=== PATIENT | male | born 1995 | race African-American/Black ===

== ENCOUNTER 2020-04-14 13:40 | Inpatient (IN) | payer OTHER ==
[~2020-04-14] VITALS: Ht 170.2 cm; Wt 97.7 kg
[2020-04-14] MEDS ORDERED: SODIUM CHLORIDE 0.9% 500 ML IVB ONE (14:23)
[2020-04-14] MEDS ORDERED: ONDANSETRON HCL 4 MG/2 ML VIAL IV ONE (14:30)
[2020-04-14] MEDS ORDERED: MORPHINE SULFATE 4 MG/ML SYR/VIAL IV ONE (14:30)
[2020-04-14 14:34] LABS: Basophils # (auto) 0 10 ^3/uL (0-0.2); Basophils % (auto) 0.9 % (0.0-2.0); Eosinophils # (auto) 0.3 10 ^3/uL (0-0.8); Eosinophils % (auto) 5.6 % (0.0-7.0); Hematocrit 44.9 % (41.0-53.0); Hemoglobin 15.1 g/dL (13.5-17.5); Lymphocytes # (auto) 1.8 10 ^3/uL (0.4-5.4); Lymphocytes % (auto) 34.4 % (10.0-50.0); Mean Corpuscular Hemoglobin 29.5 pg (28.0-32.0); Mean Corpuscular Hgb Conc. 33.5 g/dL (32.0-36.0); Mean Corpuscular Volume 88.2 fL (80.0-100.0); Monocytes # (auto) 0.6 10 ^3/uL (0-1.3); Monocytes % (auto) 10.3 % (0.0-12.0); Neutrophils # (auto) 2.6 10 ^3/uL (1.6-8.6); Neutrophils % (auto) 48.8 % (37.0-80.0); Nucleated Red Blood Cells % 0.1 %; Platelet Count (auto) 224 10^3/uL (140-450); Red Cell Distribution Width 14.3 % (11.8-14.3); White Blood Cell 5.3 10^3/uL (4.4-10.8)
[2020-04-14 14:43] LABS: Albumin 3.9 g/dL (3.4-5.0); BUN/Creatinine Ratio 8.5; Calcium 8.6 mg/dL (8.5-10.1); Potassium 3.9 mmol/L (3.5-5.1)
[2020-04-14 14:46] LABS: Bilirubin, Total 0.4 mg/dL (0.2-1.0); Total Protein 8.1 g/dL (6.4-8.2)
[2020-04-14 16:38] LABS: Urine Bacteria NONE SEEN /hpf (None Seen); Urine Blood Negative /uL (Negative); Urine Mucus FEW (None Seen); Urine Specific Gravity 1.014 (1.001-1.035); Urine WBC <1 /hpf (0 - 3)
[2020-04-14 16:53] LABS: Alcohol, Urine < 3.0 mg/dL (0-5); Amphetamine Screen, Urine NEGATIVE (NEGATIVE); Barbiturate Scree,Urine NEGATIVE (NEGATIVE); Benzodiazephine Screen, Urine NEGATIVE (NEGATIVE); Cannabinoid Screen, Urine NEGATIVE (NEGATIVE); Cocaine Screen, Urine NEGATIVE (NEGATIVE); Opiate Scree,Urine NEGATIVE (NEGATIVE); Phencyclidine Screen, Urine NEGATIVE (NEGATIVE)
[2020-04-14] MEDS ORDERED: NITROGLYCERIN 0.4 MG SL TAB SL PRN ×2 (17:45→21:15)
[2020-04-14] MEDS ORDERED: MORPHINE SULF INJ 2 MG/ML SYRINGE 1ML IV PRN ×3 (17:45→21:15)
[2020-04-14] MEDS ORDERED: MONT4CHW9 PO (20:52)
[2020-04-14] MEDS ORDERED: LORA-154 PO (20:52)
[2020-04-14] MEDS ORDERED: ALBU0.084 IN (20:52)
[2020-04-14] MEDS ORDERED: FLUT1SPR5 (20:52)
[2020-04-14] MEDS ORDERED: IPRATROPIUM BROM 0.5 MG/2.5ML INH SOL NEB ONE (21:00)
[2020-04-14] MEDS ORDERED: ALBUTEROL SULF 2.5 MG/0.5ML(0.5%) NEB SOLN NEB ONE (21:00)
[2020-04-14] MEDS ORDERED: SODIUM CHLORIDE 0.9% 1,000 ML IV SCH (21:04)
[2020-04-14] MEDS ORDERED: ALUM & MAG HYDROX-SIMETH LIQ(MAALOX) 30 ML PO PRN (21:15)
[2020-04-14] MEDS ORDERED: LORazepam 0.5 MG TAB PO PRN (21:15)
[2020-04-14] MEDS ORDERED: ONDANSETRON HCL 4 MG/2 ML VIAL IV PRN (21:15)
[2020-04-14] MEDS ORDERED: DOCUSATE SOD 100 MG CAP PO PRN (21:15)
[2020-04-14 21:21] VITALS: BP 119/76
[2020-04-14] MEDS: SODIUM CHLORIDE 0.9% 1,000 ML IV SCH (21:45)
[2020-04-14] MEDS ORDERED: LORazepam 2MG/ML-1ML VIAL IV PRN (21:45)
[2020-04-14] MEDS ORDERED: METOCLOPRAMIDE HCL 10 MG TAB PO PRN (21:45)
[2020-04-14 22:00] VITALS: BP 124/71
[2020-04-14] MEDS: FLUTICASONE PROP NASAL SPR 0.05 % (50MCG) 16GM SCH (22:00)
[2020-04-14] MEDS: IPRATROPIUM BROM 0.5 MG/2.5ML INH SOL NEB PRN (22:24)
[2020-04-14] MEDS: ALBUTEROL SULF 2.5 MG/0.5ML(0.5%) NEB SOLN NEB PRN (22:24)
[2020-04-14] MEDS: MONTELUKAST SODIUM 10 MG TAB PO SCH (23:12)
[2020-04-14] MEDS: LORATADINE 10 MG TAB PO SCH (23:12)
[2020-04-14] MEDS: HYDROcodone-ACET 5/325MG TAB PO PRN (23:13)
[2020-04-15 05:04] VITALS: BP 123/73
[2020-04-15 07:02] LABS: Basophils # (auto) 0 10 ^3/uL (0-0.2); Basophils % (auto) 0.5 % (0.0-2.0); Eosinophils # (auto) 0.3 10 ^3/uL (0-0.8); Eosinophils % (auto) 4.6 % (0.0-7.0); Hematocrit 44.1 % (41.0-53.0); Hemoglobin 14.7 g/dL (13.5-17.5); Lymphocytes # (auto) 2.4 10 ^3/uL (0.4-5.4); Lymphocytes % (auto) 35.5 % (10.0-50.0); Mean Corpuscular Hemoglobin 29.4 pg (28.0-32.0); Mean Corpuscular Hgb Conc. 33.4 g/dL (32.0-36.0); Monocytes # (auto) 0.5 10 ^3/uL (0-1.3); Monocytes % (auto) 8.2 % (0.0-12.0); Neutrophils # (auto) 3.4 10 ^3/uL (1.6-8.6); Neutrophils % (auto) 51.2 % (37.0-80.0); Nucleated Red Blood Cells % 0.1 %; Platelet Count (auto) 226 10^3/uL (140-450); Red Blood Cells 5.01 10^6/uL (4.5-5.90); Red Cell Distribution Width 13.8 % (11.8-14.3); White Blood Cell 6.7 10^3/uL (4.4-10.8)
[2020-04-15 07:15] LABS: INR 1.13 (0.9-1.15); Partial Thromboplastin Time 34.2 sec (23.64-32.05)
[2020-04-15 07:29] LABS: Potassium 4.1 mmol/L (3.5-5.1)
[2020-04-15 07:41] LABS: Albumin 3.6 g/dL (3.4-5.0); BUN/Creatinine Ratio 9.4; Bilirubin, Total 0.9 mg/dL (0.2-1.0); CRP High Sensitivity 0.13 mg/dL (< 0.3); Total Protein 7.4 g/dL (6.4-8.2)
[2020-04-15] MEDS: IPRATROPIUM BROM 0.5 MG/2.5ML INH SOL NEB PRN ×2 (07:42→14:36)
[2020-04-15] MEDS: ALBUTEROL SULF 2.5 MG/0.5ML(0.5%) NEB SOLN NEB PRN ×2 (07:43→14:36)
[2020-04-15] MEDS: SODIUM CHLORIDE 0.9% 1,000 ML IV SCH ×2 (07:45→17:45)
[2020-04-15 09:00] VITALS: BP 135/75
[2020-04-15] MEDS: FLUTICASONE PROP NASAL SPR 0.05 % (50MCG) 16GM SCH ×2 (09:41→22:07)
[2020-04-15] MEDS: predniSONE 20 MG TAB PO SCH (09:42)
[2020-04-15] MEDS: ENOXAPARIN SOD 40 MG/0.4 ML SYRINGE SC SCH (09:42)
[2020-04-15] MEDS: HYDROcodone-ACET 5/325MG TAB PO PRN ×2 (09:43→18:22)
[2020-04-15] MEDS: DexAMETHasone INJECTION 10 MG in D5W 5% 50 ML IV SCH (10:33)
[2020-04-15 13:00] VITALS: BP 120/77
[2020-04-15] MEDS: PANTOPRAZOLE 40 MG TAB PO SCH ×2 (14:27→22:09)
[2020-04-15] MEDS: LIDOCAINE 5% TOPICAL PATCH TOP SCH (14:45)
[2020-04-15 17:00] VITALS: BP 145/66
[2020-04-15] MEDS ORDERED: LORazepam 2MG/ML-1ML VIAL IV PRN (18:00)
[2020-04-15 22:00] VITALS: BP 146/81
[2020-04-15] MEDS: LORATADINE 10 MG TAB PO SCH (22:09)
[2020-04-15] MEDS: MONTELUKAST SODIUM 10 MG TAB PO SCH (22:09)
[2020-04-16] MEDS: SODIUM CHLORIDE 0.9% 1,000 ML IV SCH ×2 (03:45→10:49)
[2020-04-16 05:00] VITALS: BP 122/90
[2020-04-16 09:00] VITALS: BP 123/71
[2020-04-16] MEDS: DexAMETHasone INJECTION 10 MG in D5W 5% 50 ML IV SCH (10:46)
[2020-04-16] MEDS: ENOXAPARIN SOD 40 MG/0.4 ML SYRINGE SC SCH (10:47)
[2020-04-16] MEDS: predniSONE 20 MG TAB PO SCH (10:47)
[2020-04-16] MEDS: PANTOPRAZOLE 40 MG TAB PO SCH ×2 (10:47→21:51)
[2020-04-16] MEDS: FLUTICASONE PROP NASAL SPR 0.05 % (50MCG) 16GM SCH (10:48)
[2020-04-16] MEDS: LIDOCAINE 5% TOPICAL PATCH TOP SCH (10:48)
[2020-04-16] MEDS: HYDROcodone-ACET 5/325MG TAB PO PRN ×2 (10:51→21:52)
[2020-04-16] MEDS ORDERED: GADOTERIDOL 279.3mg/mL 20ml Vial IV ONE (13:13)
[2020-04-16 13:20] VITALS: BP 142/80
[2020-04-16 17:00] VITALS: BP 134/65
[2020-04-16] MEDS ORDERED: KETOROLAC TROMETH 30 MG/ML 1ML VIAL IV ONE (17:15)
[2020-04-16 22:00] VITALS: BP 120/63
[2020-04-17 05:50] VITALS: BP 129/57
[2020-04-17] MEDS: SUCRALFATE 1 GM/10 ML ORAL SUSP PO SCH ×3 (07:01→16:42)
[2020-04-17 09:00] VITALS: BP 123/61
[2020-04-17] MEDS ORDERED: DexAMETHasone SOD PHOS 10MG/1ML VIAL INJ IV ONE (10:00)
[2020-04-17] MEDS: ENOXAPARIN SOD 40 MG/0.4 ML SYRINGE SC SCH (10:06)
[2020-04-17] MEDS: PANTOPRAZOLE 40 MG TAB PO SCH (10:06)
[2020-04-17] MEDS: LIDOCAINE 5% TOPICAL PATCH TOP SCH (10:06)
[2020-04-17 13:00] VITALS: BP 138/90
[2020-04-17 17:00] VITALS: BP 140/75
[2020-04-17] MEDS: HYDROcodone-ACET 5/325MG TAB PO PRN (21:24)
[2020-04-17 22:00] VITALS: BP 132/83
[2020-04-18] MEDS: PANTOPRAZOLE 40 MG TAB PO SCH ×3 (01:46→22:55)
[2020-04-18 05:00] VITALS: BP 111/54
[2020-04-18] MEDS: SUCRALFATE 1 GM/10 ML ORAL SUSP PO SCH ×3 (06:39→17:37)
[2020-04-18 08:19] VITALS: BP 146/78
[2020-04-18] MEDS ORDERED: SODIUM CHLORIDE LOCK 10 ML ONE (08:49)
[2020-04-18] MEDS ORDERED: fentaNYL CITRATE 100 MCG/2 ML VL ONE (08:50)
[2020-04-18] MEDS ORDERED: diphenhdrAMINE HCL 50 MG/1 ML VL ONE (08:50)
[2020-04-18] MEDS ORDERED: LIDOCAINE VISCOUS 2% 15ML UD ONE (08:50)
[2020-04-18] MEDS ORDERED: MIDAZOLAM HCL 5 MG/ML-1ML VIAL ONE (08:50)
[2020-04-18] MEDS: LIDOCAINE 5% TOPICAL PATCH TOP SCH (10:43)
[2020-04-18] MEDS: ENOXAPARIN SOD 40 MG/0.4 ML SYRINGE SC SCH (10:44)
[2020-04-18 12:45] VITALS: BP 139/68
[2020-04-18 16:51] VITALS: BP 133/84
[2020-04-18] MEDS: HYDROcodone-ACET 5/325MG TAB PO PRN (17:40)
[2020-04-18 22:00] VITALS: BP 138/92
[2020-04-19 05:00] VITALS: BP 129/71
[2020-04-19] MEDS: SUCRALFATE 1 GM/10 ML ORAL SUSP PO SCH ×2 (06:36→11:43)
[2020-04-19 08:11] VITALS: BP 136/80
[2020-04-19] MEDS: PANTOPRAZOLE 40 MG TAB PO SCH (09:50)
[2020-04-19] MEDS: ENOXAPARIN SOD 40 MG/0.4 ML SYRINGE SC SCH (09:51)
[2020-04-19] MEDS: LIDOCAINE 5% TOPICAL PATCH TOP SCH (09:52)
[2020-04-19 12:38] VITALS: BP 137/78
[2020-04-19 14:50] VITALS: BP 137/78
== END 2020-04-19 16:15 | disposition home or self-care (01) | DRG 54 ==
LOC: ER 13:40 → TELE 13:41 → TELE-WESTW 19:50
PROVIDERS: ADMIT Hospitalist; ATTEND Internal Medicine
DX: G43.901 Migraine, unspecified, not intractable, with status migrainosus (principal); D86.9 Sarcoidosis, unspecified; M79.18 Myalgia, other site; R22.1 Localized swelling, mass and lump, neck; S16.1XXA Strain of muscle, fascia and tendon at neck level, initial encounter; K42.9 Umbilical hernia without obstruction or gangrene; H91.3 Deaf nonspeaking, not elsewhere classified; K44.9 Diaphragmatic hernia without obstruction or gangrene; K21.9 Gastro-esophageal reflux disease without esophagitis; J30.9 Allergic rhinitis, unspecified; E66.9 Obesity, unspecified; Z88.0 Allergy status to penicillin; Z88.1 Allergy status to other antibiotic agents; Z83.3 Family history of diabetes mellitus; Z84.1 Family history of disorders of kidney and ureter; Z82.49 Family history of ischemic heart disease and other diseases of the circulatory system; Z68.36 Body mass index [BMI] 36.0-36.9, adult
CPT/HCPCS: 36415; 70450; 70490; 70547; 70551; 74176; 80053; 80061; 80307; 81001; 82550; 82728; 83036; 83516; 83735; 84132; 84439; 84443; 85025; 85610; 85652; 85730; 86141; 86225; 86235; 94640; G0378; J1100; J1885; J2250; J2405; J7060

== ENCOUNTER 2021-06-30 15:33 | Inpatient (IN) | payer OTHER ==
[~2021-06-30] VITALS: Ht 170.2 cm; Wt 103.6 kg
[~2021-06-30 15:33] MED LIST: ALBU0.084 IN; FLUT1SPR5; LORA-483 PO; MONT4CHW9 PO
[2021-06-30] MEDS ORDERED: SODIUM CHLORIDE 0.9% 1,000 ML IV ONE (16:00)
[2021-06-30] MEDS ORDERED: PANTOPRAZOLE 40 MG/10 ML VIAL INJ IV ONE (16:00)
[2021-06-30] MEDS ORDERED: IOHEXOL 300 MG/ML 100ML BOTTLE IJ ONE (16:05)
[2021-06-30 16:31] LABS: Basophils # (auto) 0 10 ^3/uL (0-0.2); Basophils % (auto) 0.5 % (0.0-2.0); Eosinophils # (auto) 0.3 10 ^3/uL (0-0.8); Eosinophils % (auto) 4.5 % (0.0-7.0); Hematocrit 43.5 % (41.0-53.0); Hemoglobin 14.8 g/dL (13.5-17.5); Lymphocytes # (auto) 2.6 10 ^3/uL (0.4-5.4); Lymphocytes % (auto) 41.3 % (10.0-50.0); Mean Corpuscular Hemoglobin 29.4 pg (28.0-32.0); Mean Corpuscular Volume 86.4 fL (80.0-100.0); Monocytes # (auto) 0.6 10 ^3/uL (0-1.3); Neutrophils # (auto) 2.8 10 ^3/uL (1.6-8.6); Neutrophils % (auto) 44.7 % (37.0-80.0); Nucleated Red Blood Cells % 0.1 %; Red Blood Cells 5.04 10^6/uL (4.5-5.90); Red Cell Distribution Width 14.2 % (11.8-14.3); White Blood Cell 6.2 10^3/uL (4.4-10.8)
[2021-06-30 16:47] LABS: Albumin 4.3 g/dL (3.4-5.0); BUN/Creatinine Ratio 11.2; Calcium 8.9 mg/dL (8.5-10.1); Potassium 4.5 mmol/L (3.5-5.1)
[2021-06-30 16:50] LABS: Bilirubin, Total 0.5 mg/dL (0.2-1.0); Total Protein 8.2 g/dL (6.4-8.2)
[2021-06-30 17:01] LABS: Urine Bacteria NONE SEEN /hpf (None Seen); Urine Blood Negative /uL (Negative); Urine Mucus FEW (None Seen); Urine Specific Gravity 1.027 (1.001-1.035); Urine WBC 1 /hpf (0 - 3)
[2021-06-30 17:13] LABS: INR 1.03 (0.9-1.15); Partial Thromboplastin Time 37.1 sec (23.0-31.2)
[2021-06-30 17:20] LABS: Alcohol, Urine < 3.0 mg/dL (0-10); Amphetamine Screen, Urine NEGATIVE (NEGATIVE); Barbiturate Scree,Urine NEGATIVE (NEGATIVE); Benzodiazephine Screen, Urine NEGATIVE (NEGATIVE); Cannabinoid Screen, Urine NEGATIVE (NEGATIVE); Cocaine Screen, Urine NEGATIVE (NEGATIVE); Opiate Scree,Urine NEGATIVE (NEGATIVE); Phencyclidine Screen, Urine NEGATIVE (NEGATIVE)
[2021-06-30] MEDS ORDERED: hydrALAZINE HCL 20 MG/ML VL IV PRN (19:30)
[2021-06-30] MEDS ORDERED: ONDANSETRON HCL 4 MG/2 ML VIAL IV PRN (19:30)
[2021-06-30] MEDS ORDERED: ACETAMINOPHEN 500 MG TAB PO PRN (19:30)
[2021-06-30] MEDS ORDERED: MORPHINE SULF INJ 2 MG/ML SYRINGE 1ML IV PRN ×2 (19:30)
[2021-06-30] MEDS ORDERED: NITROGLYCERIN 0.4 MG SL TAB SL PRN (19:30)
[2021-06-30] MEDS ORDERED: LACTULOSE 20Gm/30ML SOLN PO PRN (19:30)
[2021-06-30] MEDS ORDERED: LORazepam 0.5 MG TAB PO PRN (19:30)
[2021-06-30] MEDS ORDERED: ALBUTEROL SULF 2.5 MG/0.5ML(0.5%) NEB SOLN NEB PRN (19:45)
[2021-06-30] MEDS: MONTELUKAST SODIUM 10 MG TAB PO SCH (22:00)
[2021-06-30 23:45] VITALS: BP 116/82
[2021-06-30 23:55] VITALS: BP 125/76
[2021-07-01] MEDS: SODIUM CHLORIDE 0.9% 1,000 ML IV SCH ×2 (00:30→14:54)
[2021-07-01 05:25] VITALS: BP 125/85
[2021-07-01 06:01] LABS: Basophils # (auto) 0 10 ^3/uL (0-0.2); Basophils % (auto) 0.4 % (0.0-2.0); Eosinophils # (auto) 0.3 10 ^3/uL (0-0.8); Eosinophils % (auto) 5.1 % (0.0-7.0); Hematocrit 41.4 % (41.0-53.0); Hemoglobin 14.2 g/dL (13.5-17.5); Lymphocytes # (auto) 2.9 10 ^3/uL (0.4-5.4); Lymphocytes % (auto) 47.6 % (10.0-50.0); Mean Corpuscular Hemoglobin 29.6 pg (28.0-32.0); Mean Corpuscular Hgb Conc. 34.2 g/dL (32.0-36.0); Mean Corpuscular Volume 86.6 fL (80.0-100.0); Monocytes # (auto) 0.5 10 ^3/uL (0-1.3); Monocytes % (auto) 8.9 % (0.0-12.0); Neutrophils # (auto) 2.3 10 ^3/uL (1.6-8.6); Nucleated Red Blood Cells % 0.1 %; Red Blood Cells 4.79 10^6/uL (4.5-5.90); Red Cell Distribution Width 14.4 % (11.8-14.3)
[2021-07-01 06:15] LABS: INR 1.08 (0.9-1.15)
[2021-07-01 06:18] LABS: Potassium 3.4 mmol/L (3.5-5.1)
[2021-07-01 06:26] LABS: Albumin 3.5 g/dL (3.4-5.0); BUN/Creatinine Ratio 10.2; Bilirubin, Total 0.8 mg/dL (0.2-1.0); Calcium 8.4 mg/dL (8.5-10.1); Total Protein 7.4 g/dL (6.4-8.2)
[2021-07-01 09:00] VITALS: BP 138/86
[2021-07-01] MEDS: ENOXAPARIN SOD 40 MG/0.4 ML SYRINGE SC SCH (09:05)
[2021-07-01] MEDS: PANTOPRAZOLE 40 MG TAB PO SCH (09:05)
[2021-07-01 13:00] VITALS: BP 129/68
[2021-07-01] MEDS ORDERED: KETOROLAC TROMETH 30 MG/ML 1ML VIAL IV ONE (15:00)
[2021-07-01] MEDS: SUCRALFATE 1 GM/10 ML ORAL SUSP PO SCH ×2 (16:41→22:23)
[2021-07-01 16:47] VITALS: BP 144/82
[2021-07-01 22:00] VITALS: BP 136/73
[2021-07-01] MEDS: MONTELUKAST SODIUM 10 MG TAB PO SCH (22:23)
[2021-07-02 05:00] VITALS: BP 130/84
[2021-07-02] MEDS: SUCRALFATE 1 GM/10 ML ORAL SUSP PO SCH ×4 (06:08→22:05)
[2021-07-02] MEDS: SODIUM CHLORIDE 0.9% 1,000 ML IV SCH ×2 (08:30→18:30)
[2021-07-02 09:00] VITALS: BP 136/89
[2021-07-02] MEDS: PANTOPRAZOLE 40 MG TAB PO SCH (10:00)
[2021-07-02] MEDS: ENOXAPARIN SOD 40 MG/0.4 ML SYRINGE SC SCH (10:00)
[2021-07-02 13:00] VITALS: BP 140/79
[2021-07-02 22:00] VITALS: BP 120/75
[2021-07-02] MEDS: MONTELUKAST SODIUM 10 MG TAB PO SCH (22:06)
[2021-07-03] MEDS: SODIUM CHLORIDE 0.9% 1,000 ML IV SCH (04:30)
[2021-07-03 05:00] VITALS: BP 106/62
[2021-07-03] MEDS: SUCRALFATE 1 GM/10 ML ORAL SUSP PO SCH ×2 (06:15→11:30)
[2021-07-03] MEDS: ENOXAPARIN SOD 40 MG/0.4 ML SYRINGE SC SCH (08:44)
[2021-07-03 08:56] VITALS: BP 120/80
[2021-07-03] MEDS ORDERED: PANTOPRAZOLE 40 MG TAB PO SCH (10:00)
[2021-07-03 12:04] VITALS: BP 131/87
[2021-07-03 13:00] VITALS: BP 131/87
== END 2021-07-03 16:00 | disposition home or self-care (01) | DRG 384 ==
LOC: ER 15:44 → OVERFLOW 19:27 → CENTRAL 23:20
PROVIDERS: ADMIT Family Medicine; ATTEND Family Medicine
DX: S20.212A Contusion of left front wall of thorax, initial encounter (principal); D86.9 Sarcoidosis, unspecified; Z20.822 Contact with and (suspected) exposure to COVID-19; K59.00 Constipation, unspecified; H91.93 Unspecified hearing loss, bilateral; E66.9 Obesity, unspecified; G47.00 Insomnia, unspecified; K44.9 Diaphragmatic hernia without obstruction or gangrene; X58.XXXA Exposure to other specified factors, initial encounter; J45.909 Unspecified asthma, uncomplicated; Z90.89 Acquired absence of other organs; Z81.8 Family history of other mental and behavioral disorders; Z88.0 Allergy status to penicillin; Z68.35 Body mass index [BMI] 35.0-35.9, adult; Z82.49 Family history of ischemic heart disease and other diseases of the circulatory system; Z83.3 Family history of diabetes mellitus; Z84.1 Family history of disorders of kidney and ureter; Y93.89 Activity, other specified; Y92.89 Other specified places as the place of occurrence of the external cause; Y99.8 Other external cause status; Z79.899 Other long term (current) drug therapy
CPT/HCPCS: 36415; 71046; 71101; 74177; 80053; 80307; 81001; 83690; 84443; 85025; 85610; 85730; 87426; 94640; 96361; 96374; C9113; G0378; J1885

== ENCOUNTER 2021-07-29 14:55 | Emergency (ER) | payer OTHER ==
[~2021-07-29] VITALS: Ht 170.2 cm; Wt 117.9 kg
[2021-07-29 15:05] VITALS: BP 118/78
[2021-07-29] MEDS ORDERED: ONDANSETRON HCL 4 MG/2 ML VIAL IV ONE (16:15)
[2021-07-29] MEDS ORDERED: SODIUM CHLORIDE 0.9% 1,000 ML IV ONE (16:15)
[2021-07-29] MEDS ORDERED: PANTOPRAZOLE 40 MG/10 ML VIAL INJ IV ONE (16:15)
[2021-07-29] MEDS ORDERED: SODIUM CHLORIDE 0.9% 1,000 ML IVB ONE (16:15)
[2021-07-29 16:45] LABS: Basophils # (auto) 0.1 10 ^3/uL (0-0.2); Eosinophils # (auto) 0.2 10 ^3/uL (0-0.8); Eosinophils % (auto) 3.4 % (0.0-7.0); Hemoglobin 15.7 g/dL (13.5-17.5); Lymphocytes # (auto) 1.8 10 ^3/uL (0.4-5.4); Mean Corpuscular Hemoglobin 28.9 pg (28.0-32.0); Mean Corpuscular Hgb Conc. 33.4 g/dL (32.0-36.0); Mean Corpuscular Volume 86.7 fL (80.0-100.0); Monocytes # (auto) 0.6 10 ^3/uL (0-1.3); Monocytes % (auto) 9.2 % (0.0-12.0); Neutrophils # (auto) 3.6 10 ^3/uL (1.6-8.6); Neutrophils % (auto) 57.4 % (37.0-80.0); Nucleated Red Blood Cells % 0.2 %; Red Blood Cells 5.42 10^6/uL (4.5-5.90); Red Cell Distribution Width 14.1 % (11.8-14.3); White Blood Cell 6.3 10^3/uL (4.4-10.8)
[2021-07-29 17:02] LABS: Albumin 4.3 g/dL (3.4-5.0); Anion Gap 4 (5-15); Blood Urea Nitrogen 12 mg/dL (7-18); Calcium 9.5 mg/dL (8.5-10.1); Carbon Dioxide 28 mmol/L (21-32); Chloride 106 mmol/L (98-107); Glucose 85 mg/dL (74-106); Lipase 97 U/L (73-393); Potassium 3.8 mmol/L (3.5-5.1); Sodium 138 mmol/L (136-145)
[2021-07-29 17:16] LABS: Alanine Aminotransferase 40 U/L (16-61); Alkaline Phosphatase 72 U/L (45-117); Aspartate Aminotransferase 17 U/L (15-37); BUN/Creatinine Ratio 11.3; Bilirubin, Total 0.8 mg/dL (0.2-1.0); GFR African American 108 mL/min; GFR Non-African American 89 mL/min; Total Protein 8.4 g/dL (6.4-8.2)
== END 2021-07-29 21:01 | disposition home or self-care (01) ==
LOC: ER 14:55
DX: K92.0 Hematemesis (principal); K44.9 Diaphragmatic hernia without obstruction or gangrene; Z90.89 Acquired absence of other organs; Z88.0 Allergy status to penicillin; Z88.1 Allergy status to other antibiotic agents
CPT/HCPCS: 36415; 74176; 80053; 83690; 84484; 85025; 96361; 96374; 96375; 99284; C9113; J2405; J7030

== ENCOUNTER 2022-05-28 03:25 | Emergency (ER) | payer OTHER ==
[2022-05-28 05:59] LABS: Basophils # (auto) 0 10 ^3/uL (0-0.2); Basophils % (auto) 0.3 % (0.0-2.0); Eosinophils # (auto) 0 10 ^3/uL (0-0.8); Eosinophils % (auto) 0.5 % (0.0-7.0); Hemoglobin 13.5 g/dL (13.5-17.5); Lymphocytes # (auto) 0.9 10 ^3/uL (0.4-5.4); Lymphocytes % (auto) 10.9 % (10.0-50.0); Mean Corpuscular Hemoglobin 28.8 pg (28.0-32.0); Mean Corpuscular Hgb Conc. 32.8 g/dL (32.0-36.0); Mean Corpuscular Volume 87.7 fL (80.0-100.0); Monocytes # (auto) 0.6 10 ^3/uL (0-1.3); Monocytes % (auto) 6.9 % (0.0-12.0); Neutrophils # (auto) 6.7 10 ^3/uL (1.6-8.6); Neutrophils % (auto) 81.4 % (37.0-80.0); Nucleated Red Blood Cells % 0.1 %; Red Blood Cells 4.68 10^6/uL (4.5-5.90); Red Cell Distribution Width 13.9 % (11.8-14.3); White Blood Cell 8.2 10^3/uL (4.4-10.8)
[2022-05-28 06:14] LABS: Albumin 4.2 g/dL (3.4-5.0); Calcium 8.7 mg/dL (8.5-10.1); Potassium 3.8 mmol/L (3.5-5.1)
[2022-05-28 06:18] LABS: BUN/Creatinine Ratio 7.8; Bilirubin, Total 0.3 mg/dL (0.2-1.0); Total Protein 7.9 g/dL (6.4-8.2)
[2022-05-28] MEDS ORDERED: SODIUM CHLORIDE 0.9% 1,000 ML IV ONE (07:30)
[2022-05-28] MEDS ORDERED: KETOROLAC TROMETH 30 MG/ML 1ML VIAL IV ONE (07:30)
[2022-05-28 11:31] LABS: Urine Bacteria NONE SEEN /hpf (None Seen); Urine Blood TRACE /uL (Negative); Urine Mucus FEW (None Seen); Urine Specific Gravity 1.024 (1.001-1.035); Urine WBC 1 /hpf (0 - 3)
[2022-05-28] MEDS ORDERED: MORPHINE SULFATE INJ 2 MG/ml SYRG IV ONE (11:45)
[2022-05-28] MEDS ORDERED: ONDANSETRON HCL 4 MG/2 ML VIAL IV ONE (11:45)
[2022-05-28] MEDS ORDERED: IBU600T PO (13:23)
[2022-05-28 15:35] VITALS: BP 121/71
== END 2022-05-28 15:37 | disposition home or self-care (01) ==
LOC: EDBD 03:25 → ER 03:25
DX: R10.11 Right upper quadrant pain (principal); R10.13 Epigastric pain; R11.2 Nausea with vomiting, unspecified; Z79.1 Long term (current) use of non-steroidal anti-inflammatories (NSAID); Z79.899 Other long term (current) drug therapy; Z88.0 Allergy status to penicillin; Z88.1 Allergy status to other antibiotic agents
CPT/HCPCS: 36415; 74176; 80053; 81001; 85025; 96361; 96374; 96375; 99284; J1885; J2270; J2405; J7030